=== PATIENT | female | born 1970 | race American Indian/Alaskan Native ===

== ENCOUNTER 2018-01-30 18:15 | Emergency (ER) | payer MEDICARE ==
[2018-01-30 18:31] VITALS: BP 121/85
--- NOTE | 2018-01-31 00:16 | Emergency Department Report ---
ED General Adult HPI - General Chief complaint: Pain General Stated complaint: LEG ARM BACK AND KNEE PAIN Time Seen by Provider: 01/31/18 00:03 Source: patient Mode of arrival: Ambulatory Limitations: No Limitations - History of Present Illness Initial comments: 47-year-old female comes in complaining of body aches with a history of rheumatoid arthritis pain. Patient reports that she is out of all her pain medication and asking for med refills on her muscle relaxant tramadol. Patient denies any recent traumas. Patient has not reached out to her primary care provider. She denies fever chills no nausea no vomiting. Severity scale (0 -10): 10 Consistency: intermittent Worsens with: none - Related Data Previous Rx's Medication Instructions Recorded Last Taken Type traMADol [Ultram] 50 mg PO Q6HR PRN #14 tablet 03/06/16 Unknown Rx Acetaminophen [Tylenol Arthritis] 650 mg PO Q8H #30 tablet.er 01/31/18 Unknown Rx Allergies Allergy/AdvReac Type Severity Reaction Status Date / Time No Known Allergies Allergy Unverified 03/06/16 08:27 ED Review of Systems ROS: Stated complaint: LEG ARM BACK AND KNEE PAIN Other details as noted in HPI Constitutional: other (body aches) ED Past Medical Hx - Past Medical History Previous Medical History?: Yes Hx Arthritis: Yes (rheumatoid) Hx Psychiatric Treatment: Yes (depression) Hx Asthma: Yes Additional medical history: RA; ulcers - Surgical History Past Surgical History?: Yes Additional Surgical History: gallstones removed; x2 - Social History Smoking Status: Current Every Day Smoker Substance Use Type: Prescribed - Medications Home Medications: Home Medications Medication Instructions Recorded Confirmed Last Taken Type traMADol [Ultram] 50 mg PO Q6HR PRN #14 tablet 03/06/16 Unknown Rx Acetaminophen [Tylenol Arthritis] 650 mg PO Q8H #30 tablet.er 01/31/18 Unknown Rx ED Physical Exam - General Limitations: No Limitations General appearance: alert, in no apparent distress - Head Head exam: Present: atraumatic, normocephalic - ENT ENT exam: Present: mucous membranes moist - Neck Neck exam: Present: normal inspection, full ROM - Extremities Exam Extremities exam: Present: full ROM - Back Exam Back exam: Present: full ROM - Neurological Exam Neurological exam: Present: alert, oriented X3 - Psychiatric Psychiatric exam: Present: normal affect, normal mood - Skin Skin exam: Present: warm, dry, intact, normal color. Absent: rash ED Course Vital Signs 01/30/18 18:27 Temperature 99.1 F Pulse Rate 69 Respiratory 18 Rate Blood Pressure 121/85 O2 Sat by Pulse 100 Oximetry ED Medical Decision Making - Medical Decision Making Patient has been evaluated by this provider fast track. Review of the [employer] narcotic online reporting states the patient has not had any narcotics since a November 2016. Discussed with patient I would give her an injection of Toradol and a prescription for Tylenol arthritis. Patient is to follow up with her primary care provider if symptoms persist or gets worse. Critical care attestation.: If time is entered above; I have spent that time in minutes in the direct care of this critically ill patient, excluding procedure time. ED Disposition Clinical Impression: Rheumatoid arthritis flare Disposition: DC-01 TO HOME OR SELFCARE Is pt being admited?: No Does the pt Need Aspirin: No Condition: Stable Instructions: Rheumatoid Arthritis (ED) Additional Instructions: Take pain medication as prescribed. Follow-up with your tool procurement coordinator or primary care provider for continuation of treatment. Prescriptions: Acetaminophen [Tylenol Arthritis] 650 mg PO Q8H #30 tablet.er Referrals: PRIMARY CARE [Primary Care Provider] - 3-5 Days
[2018-01-31] MEDS: TORADOL IM ONE (00:40)
== END 2018-01-31 00:50 | disposition home or self-care (01) ==
LOC: ED 18:15
DX: M06.9 Rheumatoid arthritis, unspecified (principal); J45.909 Unspecified asthma, uncomplicated; F32.9 Major depressive disorder, single episode, unspecified; F17.200 Nicotine dependence, unspecified, uncomplicated
CPT/HCPCS: 96372; 99282; J1885

== ENCOUNTER 2019-09-15 09:11 | Emergency (ER) | payer MEDICARE ==
[2019-09-15] MEDS ORDERED: KETOROLAC 60 MG/2 ML INJ IM ONE (11:44)
--- NOTE | 2019-09-15 11:49 | Emergency Department Report ---
ED Fall HPI - General Chief Complaint: Fall Stated Complaint: BACK PAIN Time Seen by Provider: 09/15/19 11:39 Source: patient Mode of arrival: Wheelchair - History of Present Illness Initial Comments: 49-year-old -[place] female presents with complaints of right sided back pain after a fall in the bathtub 3 days ago. Patient states she fell hitting her right ribs and back on the edge of the tub due to a slip and fall. She denies any preceding dizziness, head trauma, loss of consciousness, or blood thinners. She rates her pain as a 10/10 in severity and states that her lower back pain radiates down her right leg. He denies any loss of numbness/tingling/weakness in her legs, loss of bladder/bowel control, or difficulty moving legs. She states she is having difficulty with ambulation due to the pain in her back and right leg MD Complaint: fall -: Sudden Fall From: standing Fall Witnessed: no Place Fall Occurred: home Loss of Consciousness: none Prolonged Down Time?: no Symptoms Prior to Fall: none Severity scale (0 -10): 10 Quality: burning, sharp, aching Context: tripped/slipped Associated Symptoms: denies: headache, neck pain, numbness, weakness - Related Data Previous Rx's Medication Instructions Recorded Last Taken Type traMADoL [Ultram] 50 mg PO Q6HR PRN #14 tablet 03/06/16 Unknown Rx Acetaminophen [Tylenol Arthritis] 650 mg PO Q8H #30 tablet.er 01/31/18 Unknown Rx Acetaminophen/Codeine [Tylenol 1 tab PO Q8H PRN #10 tab 09/15/19 Unknown Rx /Codeine # 3 tab] methOCARBAMOL [Robaxin TAB] 1,500 mg PO Q8H PRN #21 tablet 09/15/19 Unknown Rx Allergies Allergy/AdvReac Type Severity Reaction Status Date / Time No Known Allergies Allergy Unverified 03/06/16 08:27 ED Review of Systems ROS: Stated complaint: BACK PAIN Other details as noted in HPI Comment: All other systems reviewed and negative Musculoskeletal: back pain, arthralgia ED Past Medical Hx - Past Medical History Previous Medical History?: Yes Hx Arthritis: Yes (rheumatoid) Hx Psychiatric Treatment: Yes (depression) Hx Asthma: Yes Additional medical history: RA; ulcers - Surgical History Past Surgical History?: Yes Additional Surgical History: gallstones removed; x2 - Social History Smoking Status: Never Smoker Substance Use Type: None - Medications Home Medications: Home Medications Medication Instructions Recorded Confirmed Last Taken Type traMADoL [Ultram] 50 mg PO Q6HR PRN #14 tablet 03/06/16 Unknown Rx Acetaminophen [Tylenol Arthritis] 650 mg PO Q8H #30 tablet.er 01/31/18 Unknown Rx Acetaminophen/Codeine [Tylenol 1 tab PO Q8H PRN #10 tab 09/15/19 Unknown Rx /Codeine # 3 tab] methOCARBAMOL [Robaxin TAB] 1,500 mg PO Q8H PRN #21 tablet 09/15/19 Unknown Rx ED Physical Exam - General Limitations: No Limitations General appearance: alert, in no apparent distress - Head Head exam: Present: atraumatic, normocephalic - Eye Eye exam: Present: normal appearance. Absent: scleral icterus - Neck Neck exam: Present: normal inspection, full ROM. Absent: tenderness - Respiratory Respiratory exam: Present: normal lung sounds bilaterally, other (Tenderness not ed to right posterior lower ribs without bruising or swelling or deformity noted). Absent: respiratory distress - Cardiovascular Cardiovascular Exam: Present: regular rate, normal rhythm. Absent: systolic murmur, diastolic murmur, rubs, gallop - GI/Abdominal GI/Abdominal exam: Present: soft. Absent: distended, tenderness, guarding, rebound, rigid - Rectal Rectal exam: Present: deferred - Back Exam Back exam: Present: full ROM, paraspinal tenderness (Lower lumbar), vertebral tenderness (Lower lumbar), other (Tenderness noted over right buttock with positive right straight leg raise test) - Neurological Exam Neurological exam: Present: alert, oriented X3. Absent: motor sensory deficit - Expanded Neurological Exam Expanded Sensory exam: Upper Extremity Light Touch: Normal, Lower Extremity Light Touch: Normal Motor strength exam: RUE: 5, LUE: 5, RLE: 5, LLE: 5 - Psychiatric Psychiatric exam: Present: normal affect, normal mood - Skin Skin exam: Present: warm, dry, intact, normal color. Absent: rash ED Course Vital Signs 09/15/19 12:00 Temperature 97.8 F Pulse Rate 65 Respiratory 16 Rate Blood Pressure 125/92 [Left] O2 Sat by Pulse 96 Oximetry ED Medical Decision Making - Radiology Data Radiology results: report reviewed - Medical Decision Making Patient presents with right posterior rib pain and low back pain radiating down her right leg after a fall injury in the tub x3 days ago. X-ray of the right ribs and lumbar spine are without acute findings. Patient is now ambulatory post pain medication and muscle relaxer. She denied any red flag symptoms. Her vitals are normal and she is stable for discharge home. Recommend follow-up with primary care provider. Discussed strict return precautions in detail with patient who verbalizes understanding. Critical care attestation.: If time is entered above; I have spent that time in minutes in the direct care of this critically ill patient, excluding procedure time. ED Disposition Clinical Impression: Contusion of rib on right side Qualifiers: Encounter type: initial encounter Qualified Code(s): S20.211A - Contusion of right front wall of thorax, initial encounter Low back pain with right-sided sciatica Qualifiers: Chronicity: acute Back pain laterality: right Qualified Code(s): M54.41 - Lumbago with sciatica, right side Disposition: - TO HOME OR SELFCARE Is pt being admited?: No Condition: Stable Instructions: Sciatica (ED), Contusion in Adults (ED), Low Back Strain (ED) Prescriptions: methOCARBAMOL [Robaxin TAB] 1,500 mg PO Q8H PRN #21 tablet PRN Reason: muscle spasm/tightness Acetaminophen/Codeine [Tylenol /Codeine # 3 tab] 1 tab PO Q8H PRN #10 tab PRN Reason: pain Referrals: PRIMARY CARE, [Primary Care Provider] - 3-5 Days
[2019-09-15 12:01] VITALS: BP 125/92
--- NOTE | 2019-09-15 12:41 | XRay Report ---
RIGHT RIBS PLUS CHEST 5 VIEWS INDICATION / CLINICAL INFORMATION: Lower posterior right rib pain after fall. COMPARISON: None available. FINDINGS: BONES and JOINT(S): No acute fracture or subluxation. No significant arthritis. SOFT TISSUES/CHEST: There is mild bibasilar atelectasis versus scarring. No additional significant ab normality. ADDITIONAL FINDINGS: None. IMPRESSION: No acute abnormality of the right ribs/chest. Signer Name: Chago Brink MD Signed: 09/15/2019 12:37 PM Workstation Name: [id number]
--- NOTE | 2019-09-15 12:44 | XRay Report ---
LUMBAR SPINE 3 VIEWS INDICATION: Right back pain after fall. COMPARISON: No relevant prior imaging study available. FINDINGS: VERTEBRAE: No acute fracture. Normal alignment. DISC SPACES: Multilevel mild discogenic degenerative changes are noted. FACET JOINTS: No significant abnormality. SOFT TISSUES: No significant abnormality. ADDITIONAL FINDINGS: No additional significant findings. IMPRESSION: 1. No acute findings. 2. Mild lumbar spondylosis. Signer Name: Chago Brink MD Signed: 09/15/2019 12:39 PM Workstation Name: [id number]
== END 2019-09-15 13:41 | disposition home or self-care (01) ==
LOC: ED 09:11
DX: S20.211A Contusion of right front wall of thorax, initial encounter (principal); M54.31 Sciatica, right side; M19.90 Unspecified osteoarthritis, unspecified site; F32.9 Major depressive disorder, single episode, unspecified; J45.909 Unspecified asthma, uncomplicated; Z79.899 Other long term (current) drug therapy; W20.8XXA Other cause of strike by thrown, projected or falling object, initial encounter; Y93.89 Activity, other specified; Y92.89 Other specified places as the place of occurrence of the external cause; Y99.8 Other external cause status
CPT/HCPCS: 71101; 72100; 96372; 99283; J1885

== ENCOUNTER 2022-02-08 19:11 | Emergency (ER) | payer MEDICARE ==
[2022-02-08 23:54] VITALS: BP 157/84
[2022-02-09] MEDS ORDERED: RABIES VACCINE, HUMAN DIPLOID/PF 2.5 UNIT/ML VIAL IM ONE (02:46)
[2022-02-09] MEDS ORDERED: RABIES IMMUNE GLOBULIN P/F 300 UNIT/ML INJ 5 ML IM ONE (02:46)
[2022-02-09] MEDS ORDERED: TETANUS,DIPH,PERTUSS(ACELL) VACCINE 0.5 ML SYRINGE IM ONE (02:46)
[2022-02-09] MEDS ORDERED: HYDROcodone/ACETAMINOPHEN 5-325 MG TAB PO STA (04:18)
--- NOTE | 2022-02-09 04:28 | Emergency Department Report ---
ED Animal Bite HPI - General Chief Complaint: Animal Bite Stated Complaint: DOG BITE Time Seen by Provider: 02/09/22 02:45 Source: patient Mode of arrival: Ambulatory Limitations: No Limitations - History of Present Illness Initial Comments: 51-year-old female bitten on the right thigh by people on 02/07/2022 and follow- up at [facility] immediate care she received antibiotics. Due to the appearance of the wound advised her to come to emergency department to receive a tetanus shot and to be vaccinated for rabies. Patient reports dull throbbing pain but reports no fever, chills, sweats, no numbness, no tingling. Complaint: animal bite -: Gradual Animal: dog Animal Control Notified: No Description: unknown animal Mechanism: bite Pain Description: dull Context: unprovoked Associated Symptoms: denies: discharge from wound - Related Data Patient Tetanus UTD: Yes Previous Rx's Medication Instructions Recorded Last Taken Type traMADoL [Ultram] 50 mg PO Q6HR PRN #14 tablet 03/06/16 Unknown Rx Acetaminophen [Tylenol Arthritis] 650 mg PO Q8H #30 tablet.er 01/31/18 Unknown Rx Acetaminophen/Codeine [Tylenol 1 tab PO Q8H PRN #10 tab 09/15/19 Unknown Rx /Codeine # 3 tab] methOCARBAMOL [Robaxin TAB] 1,500 mg PO Q8H PRN #21 tablet 09/15/19 Unknown Rx Acetaminophen/Codeine [Tylenol 1 tab PO Q6H PRN #10 tab 02/09/22 Unknown Rx /Codeine # 3 tab] Amoxicillin/K Clav Tab [Augmentin 1 tab PO Q12HR #20 tab 02/09/22 Unknown Rx 875 mg] Allergies Allergy/AdvReac Type Severity Reaction Status Date / Time No Known Allergies Allergy Unverified 03/06/16 08:27 ED Review of Systems ROS: Stated complaint: DOG BITE Other details as noted in HPI Comment: All other systems reviewed and negative ED Past Medical Hx - Past Medical History Previous Medical History?: Yes Hx Arthritis: Yes (rheumatoid) Hx Psychiatric Treatment: Yes (depression) Hx Asthma: Yes Additional medical history: RA; ulcers - Surgical History Past Surgical History?: Yes Additional Surgical History: gallstones removed; x2 - Social History Smoking Status: Never Smoker Substance Use Type: None - Medications Home Medications: Home Medications Medication Instructions Recorded Confirmed Last Taken Type traMADoL [Ultram] 50 mg PO Q6HR PRN #14 tablet 03/06/16 Unknown Rx Acetaminophen [Tylenol Arthritis] 650 mg PO Q8H #30 tablet.er 01/31/18 Unknown Rx Acetaminophen/Codeine [Tylenol 1 tab PO Q8H PRN #10 tab 09/15/19 Unknown Rx /Codeine # 3 tab] methOCARBAMOL [Robaxin TAB] 1,500 mg PO Q8H PRN #21 tablet 09/15/19 Unknown Rx Acetaminophen/Codeine [Tylenol 1 tab PO Q6H PRN #10 tab 02/09/22 Unknown Rx /Codeine # 3 tab] Amoxicillin/K Clav Tab [Augmentin 1 tab PO Q12HR #20 tab 02/09/22 Unknown Rx 875 mg] ED Physical Exam - General Limitations: No Limitations General appearance: alert, in no apparent distress - Head Head exam: Present: atraumatic, normocephalic - Eye Eye exam: Present: normal appearance, PERRL, EOMI Pupils: Present: normal accommodation - ENT ENT exam: Present: mucous membranes moist - Neck Neck exam: Present: normal inspection, full ROM - Respiratory Respiratory exam: Present: normal lung sounds bilaterally. Absent: respiratory distress, wheezes, rales, accessory muscle use, decreased breath sounds - Cardiovascular Cardiovascular Exam: Present: regular rate, normal rhythm. Absent: systolic murmur, diastolic murmur, rubs, gallop - GI/Abdominal GI/Abdominal exam: Present: soft, normal bowel sounds - Extremities Exam Extremities exam: Present: normal inspection - Back Exam Back exam: Present: normal inspection - Neurological Exam Neurological exam: Present: alert, oriented X3 - Psychiatric Psychiatric exam: Present: normal affect, normal mood - Skin Skin exam: Present: warm, normal color, other (Some partial-thickness function to areas which appear to be healing well very minimal local redness. No lymphangitis present. No discharge no pus is present no subcutaneous emphysema. Some vague tenderness with palpation). Absent: dry, intact, rash ED Course Vital Signs 02/08/22 02/08/22 23:50 23:53 Temperature 98.4 F Pulse Rate 72 Respiratory 16 Rate Blood Pressure 157/84 [Right] O2 Sat by Pulse 100 Oximetry Critical care attestation.: If time is entered above; I have spent that time in minutes in the direct care of this critically ill patient, excluding procedure time. ED Disposition Clinical Impression: Dog bite Disposition: HOME / SELF CARE / HOMELESS Is pt being admited?: No Does the pt Need Aspirin: No Condition: Undetermined Prescriptions: Amoxicillin/K Clav Tab [Augmentin 875 mg] 1 tab PO Q12HR #20 tab Acetaminophen/Codeine [Tylenol /Codeine # 3 tab] 1 tab PO Q6H PRN #10 tab PRN Reason: pain Referrals: [facility] [Provider Group] - 3-5 Days
== END 2022-02-09 07:38 | disposition home or self-care (01) ==
LOC: ED 19:11
DX: S71.151A Open bite, right thigh, initial encounter (principal); M06.9 Rheumatoid arthritis, unspecified; F32.9 Major depressive disorder, single episode, unspecified; J45.909 Unspecified asthma, uncomplicated; Z98.890 Other specified postprocedural states; W54.0XXA Bitten by dog, initial encounter; Y93.89 Activity, other specified; Y92.89 Other specified places as the place of occurrence of the external cause; Y99.8 Other external cause status
CPT/HCPCS: 90375; 90471; 90472; 90675; 90715; 96372; 99282